=== PATIENT | male | born 1975 | race Caucasian/White ===

== ENCOUNTER 2017-03-20 13:51 | Outpatient (CLI) | payer OTHER | END 2017-03-20 13:52 | disposition home or self-care (01) | LOC: DTY/OP 13:51 | PROVIDERS: ATTEND Surgery | DX: E66.01 Morbid (severe) obesity due to excess calories (principal) | CPT/HCPCS: 97802 ==

== ENCOUNTER 2017-06-10 09:00 | Inpatient (IN) | payer BC ==
[2017-06-10 09:27] VITALS: BMI 37.0
[2017-06-17] MEDS ORDERED: Fentanyl 100 MCG/2 ML VIAL ONE (06:19)
[2017-06-17] MEDS ORDERED: HYDROmorphone 0.5 MG/0.5 ML SYRINGE ONE ×3 (06:19→10:39)
[2017-06-17] MEDS ORDERED: Ondansetron HCl/PF 4 MG/2 ML Vial ONE ×2 (06:20→08:17)
[2017-06-17] MEDS ORDERED: Metoclopramide HCl 10 MG/2 ML VIAL ONE ×2 (06:20→08:17)
[2017-06-17] MEDS ORDERED: CEFAZOLIN/Water 2 GM/20 ML SYRINGE ONE (06:38)
[2017-06-17] MEDS ORDERED: Heparin 5,000 UNITS/ML VIAL ONE (06:38)
[2017-06-17] MEDS ORDERED: Scopolamine 1.5 mg/72 hour Patch ONE (06:45)
[2017-06-17] MEDS ORDERED: Bupivacaine/Epinephrine 0.25% 30 ML VIAL ONE (06:56)
[2017-06-17] MEDS ORDERED: PHENYLEPHRINE-NS 100 MCG/ML 10 ML SYRINGE ONE (08:17)
[2017-06-17] MEDS ORDERED: Lidocaine 1% PF 5 ML VIAL ONE (08:17)
[2017-06-17] MEDS ORDERED: Dexamethasone 20 MG/5 ML VIAL ONE (08:17)
[2017-06-17] MEDS ORDERED: PROPOFOL 200 MG/20 ML VIAL ONE (08:17)
[2017-06-17] MEDS ORDERED: Glycopyrrolate 0.2 MG/ML 5 ML SYRINGE ONE (08:17)
[2017-06-17] MEDS ORDERED: Succinylcholine Chloride 20 MG/ML 10 ml SYRINGE FS ONE (08:17)
[2017-06-17] MEDS ORDERED: Ketorolac Tromethamine 30 MG/ML VIAL ONE (08:17)
[2017-06-17] MEDS ORDERED: Hydrocodone-Acetamin 15 ML UDCUP PO PRN (08:50)
[2017-06-17] MEDS ORDERED: hydrALAZINE 20 MG/ML VIAL SLOW IVP PRN (08:50)
[2017-06-17] MEDS ORDERED: Dextrose 50% Abboject 50 ML SYRINGE SLOW IVP PRN (08:50)
[2017-06-17] MEDS ORDERED: Dextrose 5% in Water 1,000 ML IV PRN (08:50)
[2017-06-17] MEDS ORDERED: Ondansetron HCl/PF 4 MG/2 ML Vial IVP PRN ×2 (08:50→10:00)
[2017-06-17] MEDS ORDERED: Promethazine HCl 25 MG/ML VIAL IM PRN ×2 (08:50→10:00)
[2017-06-17] MEDS ORDERED: diphenhydrAMINE 50 MG/ML VIAL IVP PRN ×2 (08:50→10:00)
[2017-06-17] MEDS ORDERED: Communication Order-Pharmacy FS SCH (10:00)
[2017-06-17] MEDS ORDERED: Fentanyl 5000 MCG/250 ML CADD IVPB PRN (10:00)
[2017-06-17] MEDS ORDERED: Zolpidem Tartrate 5 MG TAB PO PRN (10:00)
[2017-06-17] MEDS ORDERED: diphenhydrAMINE 25 MG CAP PO PRN (10:00)
[2017-06-17] MEDS ORDERED: Naloxone HCl 0.4 mg/ml Vial IV PRN (10:00)
[2017-06-17] MEDS ORDERED: Ketorolac Tromethamine 30 MG/ML VIAL IVP PRN (10:00)
[2017-06-17] MEDS ORDERED: diphenhydrAMINE 50 MG/ML VIAL IM PRN (10:00)
[2017-06-17] MEDS ORDERED: fentaNYL Citrate/PF 2,000 MCG in Sodium Chloride 0.9% 60 ML IV PRN (10:30)
--- NOTE | 2017-06-17 11:27 | OP ---
PREOPERATIVE DIAGNOSIS: Morbid obesity. SURGEON: Conrado Baca M.D. PROCEDURE PERFORMED: Laparoscopic sleeve gastrectomy with intraoperative esophagogastroscopy. INDICATIONS: This is a 41-year-old male, morbidly obese, who has attempted multiple weight loss prog palmira without success. FINDINGS: A 38 [place] bougie used. PROCEDURE IN DETAIL: After informed consent was obtained, the patient was taken to the operating sofy m and given general endotracheal anesthesia. She was placed in the supine position. The abdomen was prepped and draped in usual fashion. Local anesthesia infiltrated subcutaneously and deep and a 12 mm incision was performed approximately 8 inches below the xiphoid slightly to the left. Veress need le inserted. Drop test performed. Pneumoperitoneum was created to a volume of 2 liters of carbon di oxide. Utilizing a bladeless 12 mm trocar and 0 degree laparoscope direct visual entry in the abdomi nal cavity was performed. Pneumoperitoneum was created to a pressure of 15 mmHg. Under direct visio n, a emo2 Incen liver retractor inserted. Left lobe of liver retracted superiorly. Pylorus identifie d, a 12 mm port placed on the right beneath it and two 12s placed left subcostal. The omentum was ta kaylah off the greater curvature 5 cm from the pylorus utilizing the LigaSure. Short gastrics divided w ith the LigaSure and left crura defined with the LigaSure. A 38-[place] bougie inserted directed into the antrum. The linear 60 mm green load stapler used to divide the antrum to the bougie, gold load along the bougie, and a series of blues through the angle of His. Intraoperative endoscopy was perfo rmed. The video endoscope inserted under direct vision. The staple line inspected. There was no bl eeding. Staple line then tested by inflating the new stomach with pressurized air under water. Ther e was no air leak. Stomach decompressed. Scope removed. The remnant stomach removed from the abdom en through the left lateral port site. The fascia closed with 0 Vicryl suture and the GraNee needle. Trocars and retractors removed. The skin closed with interrupted 4-0 Rapide. Dermabond applied. The patient tolerated the procedure well and was transferred to recovery in good condition. Sponge a nd needle count verified correct x2.
[2017-06-17] MEDS: Pantoprazole 40 MG VIAL IVP SCH (16:00)
[2017-06-17] MEDS: CEFAZOLIN/Water 2 GM/20 ML SYRINGE SLOW IVP SCH ×2 (16:01→22:55)
[2017-06-17] MEDS: D5 1/2 NS w/20 mEq KCL 1,000 ML IV SCH ×2 (16:01→22:55)
[2017-06-18] MEDS: D5 1/2 NS w/20 mEq KCL 1,000 ML IV SCH (05:08)
[2017-06-18 05:21] LABS: #Eosinphils 0.1 thou/uL (0.0-0.7); #Lymphocytes 1.8 thou/uL (1.20-3.40); #Monocytes 1.1 thou/uL (0.11-0.59); #Neutrophils 10.1 thou/uL (1.40-6.50); %Basophils 0.3 % (0.0-1.0); %Eosinophils 0.6 % (0.0-10.0); %Lymphocytes 13.7 % (21.0-51.0); %Monocytes 8.6 % (0.0-10.0); %Neutrophils 76.8 % (42.0-75.0); Hemoglobin 14.6 g/dL (14.0-18.0); Mean Corpuscular HGB CONC 34.9 g/dL (32.0-36.0); Mean Corpuscular Hemoglobin 32.3 pg (27.0-31.0); Mean Corpuscular Volume 92.5 fl (80.0-94.0); Mean Platelet Volume 7.3 fL (7.4-10.4); Platelet Count 234 thou/uL (130-400); RBC Distribution Width 12.1 % (11.5-14.5); Red Blood Cell (RBC) Count 4.51 mill/uL (4.70-6.10); White Blood Cell (WBC) Count 13.2 thou/uL (4.8-10.8)
[2017-06-18 05:22] LABS: Anion Gap 11 mmol/L (10-20); BUN (Urea Nitrogen) 11 mg/dL (8.9-20.6); Calc. Creatinine Clearance 152 mL/min (70-130); Calcium 8.4 mg/dL (7.8-10.44); Carbon Dioxide 29 mmol/L (22-29); Chloride 103 mmol/L (98-107); Estimated GFR-MDRD 73; Glucose 111 mg/dL (70-105); Potassium 3.8 mmol/L (3.5-5.1); Sodium 139 mmol/L (136-145)
[2017-06-18] MEDS ORDERED: Enoxaparin Sodium 40 MG/0.4 ML SYRINGE SC SCH (06:00)
[2017-06-18] MEDS: Pantoprazole 40 MG VIAL IVP SCH (08:56)
--- NOTE | 2017-06-18 09:14 | RAD ---
LIMITED UPPER GI: DATE: 06/18/17. HISTORY: Post bariatric surgery. FINDINGS: [employer] imaging demonstrates surgical clips in the epigastric region. Approximately 15 mL of Gastrogra fin was administered by mouth. The contrast traverses he GE junction freely and without holdup. The re are postsurgical changes related to gastric sleeve procedure, but contrast readily flows into the proximal small bowel without holdup. There is no extravasation of contrast seen to suggest a leak. IMPRESSION: Postsurgical changes related to gastric sleeve procedure without evidence of holdup of contrast at th e GE junction or within the stomach, and there is no extravasation of contrast to suggest a leak. POS: [facility]
[2017-06-18 12:26] VITALS: BP 122/83; TEMP 98.3
--- NOTE | 2017-06-18 17:57 | DIS ---
DISCHARGE DIAGNOSIS: Morbid obesity. PROCEDURES DURING ADMISSION: Laparoscopic sleeve gastrectomy, intraoperative esophagogastroscopy, po stoperative Gastrografin swallow. HOSPITAL COURSE: The patient was admitted, taken to the operating room where he underwent a sleeve g astrectomy. Postoperatively, he has done well. He is tolerating his liquids and his x-ray was fine. He is discharged home on hydrocodone, Zofran, and follow up with me in 2 weeks.
[2017-06-19] MEDS ORDERED: Enoxaparin Sodium 40 MG/0.4 ML SYRINGE SC SCH (09:00)
== END 2017-06-18 12:29 | disposition home or self-care (01) | DRG 621 ==
LOC: SURG A 06-17 06:03
PROVIDERS: ADMIT Surgery; ATTEND Surgery
PROC: 0DB64Z3 Excision of Stomach, Percutaneous Endoscopic Approach, Vertical (ICD-10-PCS; principal; 2017-06-17)
PROC: 0DJ08ZZ Inspection of Upper Intestinal Tract, Via Natural or Artificial Opening Endoscopic (ICD-10-PCS; 2017-06-17)
DX: E66.01 Morbid (severe) obesity due to excess calories (principal); Z68.37 Body mass index [BMI] 37.0-37.9, adult; Z71.3 Dietary counseling and surveillance; G47.30 Sleep apnea, unspecified; Z87.442 Personal history of urinary calculi
CPT/HCPCS: 36415; 74241; 80048; 85025; 88307; 88312; 94760; C9113; J0131; J1100; J1170; J1644; J1650; J1885; J2001; J2405; J2704; J2765; J3010; J7050

== ENCOUNTER 2017-06-10 09:07 | Outpatient (CLI) | payer BC ==
[2017-06-10 10:31] LABS: #Basophils 0.1 thou/uL (0.0-0.2); #Eosinphils 0.2 thou/uL (0.0-0.7); #Lymphocytes 2.3 thou/uL (1.20-3.40); #Monocytes 0.8 thou/uL (0.11-0.59); %Basophils 0.8 % (0.0-1.0); %Eosinophils 1.9 % (0.0-10.0); %Lymphocytes 27.6 % (21.0-51.0); %Monocytes 9.1 % (0.0-10.0); %Neutrophils 60.5 % (42.0-75.0); Hemoglobin 17.4 g/dL (14.0-18.0); Mean Corpuscular HGB CONC 35.1 g/dL (32.0-36.0); Mean Corpuscular Hemoglobin 31.5 pg (27.0-31.0); Mean Corpuscular Volume 89.8 fl (80.0-94.0); Mean Platelet Volume 6.7 fL (7.4-10.4); Platelet Count 240 thou/uL (130-400); RBC Distribution Width 12.2 % (11.5-14.5); Red Blood Cell (RBC) Count 5.52 mill/uL (4.70-6.10); White Blood Cell (WBC) Count 8.2 thou/uL (4.8-10.8)
[2017-06-10 10:34] LABS: Hemoglobin A1c 5.4 % (4.0-6.0)
[2017-06-10 10:49] LABS: ALT (SGPT) 156 U/L (8-55); AST (SGOT) 63 U/L (5-34); Albumin 4.6 g/dL (3.5-5.0); Alkaline Phosphatase 73 U/L (40-150); Anion Gap 8 mmol/L (10-20); BUN (Urea Nitrogen) 20 mg/dL (8.9-20.6); Bilirubin, Direct 0.4 mg/dL (0.1-0.3); Calc. Creatinine Clearance 0 mL/min (70-130); Calcium 9.4 mg/dL (7.8-10.44); Carbon Dioxide 29 mmol/L (22-29); Chloride 103 mmol/L (98-107); Estimated GFR-MDRD 75; Globulin 2.8 g/dL (2.4-3.5); Glucose 90 mg/dL (70-105); Potassium 4.3 mmol/L (3.5-5.1); Protein, Total 7.4 g/dL (6.0-8.3); Sodium 136 mmol/L (136-145)
--- NOTE | 2017-06-10 10:56 | RAD ---
PA AND LATERAL CHEST: History: Pre-operative evaluation. FINDINGS: The heart size is normal. The lungs are expanded without focal areas of consolidation, pneumothorax, or pleural effusions. There are degenerative changes in the spine. IMPRESSION: No radiographic evidence of acute cardiopulmonary process. POS: [facility]
== END 2017-06-10 09:08 | disposition home or self-care (01) ==
LOC: LABBT 09:07
PROVIDERS: ATTEND Surgery
DX: Z01.818 Encounter for other preprocedural examination (principal); E66.01 Morbid (severe) obesity due to excess calories
CPT/HCPCS: 71046; 80053; 80076; 83036; 85025; 93005; 93010